=== PATIENT | female | born 1940 | race Two or more races ===

== ENCOUNTER 2019-01-15 13:31 | Emergency (ER) | payer SELFPAY ==
[~2019-01-15] VITALS: Ht 167.6 cm; Wt 83.5 kg
[2019-01-15] MEDS ORDERED: Permethrin60 GM TOP (14:02)
== END 2019-01-15 14:08 | disposition home or self-care (01) ==
LOC: ER 13:31
DX: Z20.7 Contact with and (suspected) exposure to pediculosis, acariasis and other infestations (principal); Z79.899 Other long term (current) drug therapy
CPT/HCPCS: 99282